=== PATIENT | female | born 1975 | race Two or more races ===

== ENCOUNTER 2019-02-02 07:09 | Emergency (ER) | payer OTHER ==
[~2019-02-02] VITALS: Ht 167.6 cm; Wt 95.3 kg
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
--- NOTE | 2019-02-02 07:15 | NUR ---
AT BEDSIDE FOR EVAL.
[2019-02-02] MEDS ORDERED: IBUPROFEN 600 MG TABLET PO ONE ×2 (07:19→07:30)
[2019-02-02 07:55] VITALS: BP 169/99
== END 2019-02-02 07:56 | disposition home or self-care (01) ==
LOC: ER 07:09
DX: M54.2 Cervicalgia (principal); M25.511 Pain in right shoulder; I10 Essential (primary) hypertension; V49.59XA Passenger injured in collision with other motor vehicles in traffic accident, initial encounter; Y93.89 Activity, other specified; Y92.89 Other specified places as the place of occurrence of the external cause; Y99.8 Other external cause status